=== PATIENT | male | born 1960 ===

== ENCOUNTER 2021-08-19 10:34 | Inpatient (IN) | payer OTHER, SELFPAY ==
[2021-08-19] VITALS (7 sets, daily range): BP systolic 91–163; BP diastolic 62–93; PULSE 90–98; RESP 14–20; TEMP 36.3–36.6; O2SAT 98–100; BMI 26.0
--- NOTE | ~2021-08-19 | XR_ITS ---
EXAMINATION: XR chest 2V Exam Date/Time: 08/19/2021 14:52 CDT CLINICAL HISTORY: weakness, swelling in bilateral legs Comparison: 06/08/2018. RESULT: Lines, tubes, and devices: None. Lungs and pleura: Clear. Cardiomediastinal silhouette: Stable cardiomediastinal silhouette. Other: No acute osseous or upper abdominal finding. IMPRESSION: No acute cardiopulmonary process Reviewed, dictated and finalized at location K.
--- NOTE | ~2021-08-19 | US_ITS ---
EXAMINATION: US venous doppler [facility] DATE: 08/19/2021 13:14 INDICATION: Lower limb swelling. TECHNIQUE: Grayscale ultrasound images without and with compression and Doppler ultrasound images of the bilateral lower extremity veins were obtained. COMPARISON: None. FINDINGS: The visualized portions of right common femoral vein, profunda (deep) femoral vein, femoral vein, pop liteal vein, posterior tibial veins, and greater saphenous vein outflow are patent. The visualized portions of left common femoral vein, profunda femoral vein, femoral vein, popliteal v ein, peroneal veins, posterior tibial veins, and greater saphenous vein outflow are patent. IMPRESSION: 1. No deep venous thrombosis. Reviewed, dictated and finalized at location B.
--- NOTE | ~2021-08-19 | XR_ITS ---
EXAMINATION: XR chest 1V portable EXAM DATE: 08/21/2021 06:00 INDICATION: CHF. TECHNIQUE: Portable AP frontal chest x-ray was obtained. Comparison is made to prior examination from 08/19/2021. FINDINGS: The lungs are clear. There are no pleural effusions. The cardiomediastinal silhouette is within normal limits. There is no pneumothorax suspected. The bones and soft tissues are unremarkab le. IMPRESSION: No acute cardiopulmonary findings. Reviewed, dictated and finalized at location A.
[2021-08-19 12:36] LABS: Basophils Absolute Auto 0.2 K/mm3 (0.0-0.1); Basophils Percent Auto 1.8 % (0.2-1.2); Eosinophils Absolute Auto 0.5 K/mm3 (0-0.3); Hematocrit 37.1 % (42.0-52.0); Hemoglobin 11.7 g/dL (14.0-18.0); Immature Granulocyte Absolute 0.07 K/mm3 (0.00-0.031); Immature Granulocyte Percent A 0.6 % (0-0.5); Lymphocytes Absolute Auto 1.95 K/mm3 (0.9-3.2); Lymphocytes Percent Auto 15.5 % (18.3-44.2); Mean Corpuscular HGB Conc 31.5 g/dl (32-36); Mean Corpuscular Hemoglobin 33.7 pg (26-34); Mean Corpuscular Volume 106.9 fl (80-100); Mean Platelet Volume 8.3 fl (7.4-10.4); Monocytes Absolute Auto 1.2 K/mm3 (0.1-0.6); Monocytes Percent Auto 9.9 % (2.6-8.5); Neutrophils Absolute Auto 8.6 K/mm3 (1.3-6.7); Neutrophils Percent Auto 68.2 % (45.5-73.1); Platelet Count Result 731 k/mm3 (150-375); Red Blood Count 3.47 M/mm3 (4.6-6.20); Red Cell Distribution Width 14.2 % (11.5-14.5); White Blood Count 12.6 K/mm3 (4.5-10.0)
[2021-08-19 12:43] LABS: Alanine Aminotransferase 15 U/L (4-50); Albumin Level 3.7 g/dL (3.5-5.1); Alkaline Phosphatase 126 U/L (38-126); Anion Gap 6 mmol/L (8-16); Aspartate Amino Transferase 30 U/L (17-59); Bilirubin,Total 0.5 mg/dL (0.2-1.3); Blood Urea Nitrogen 3 mg/dL (9-20); Calcium 8.5 mg/dL (8.4-10.2); Carbon Dioxide 34 mmol/L (22-30); Chloride 98 mmol/L (98-107); Estimated CRCL calculation 97 ml/min; Estimated Glomerular Filt Rate > 60; Glucose 100 mg/dL (65-110); Sodium 138 mmol/L (137-145)
[2021-08-19 12:47] LABS: Prothrombin Time 12.9 Seconds (11.1-14.7)
[2021-08-19 12:48] LABS: Partial Thromboplastin Time 30.5 SECONDS (22.3-36.8)
--- NOTE | 2021-08-19 12:55 | ED.GENADULT ---
HPI - General Adult General Chief complaint: Extremity Problem,Nontraumatic Stated complaint: leg swelling Time Seen by Provider: 08/19/21 12:04 History of Present Illness HPI narrative: Patient is a 60-year-old male who presents ER with bilateral lower extremity swelling. Ongoing over the last 5 days. Patient had recently been hospitalized at [facility]. At that time he had urinary retention as well as colitis. He had a cystoscopy performed with biopsy for possible neoplasm. He also had a colonoscopy. He was treated with Levaquin and metronidazole. He also was receiving oxybutynin for bladder spasm. He has been self cathing himself but is started to urinate on his own since starting Flomax. Denies any burning urination or blood in stool/urine at this time. No chest pain or chest pressure. No orthopnea. No new cough. No dyspnea. Related Data Home Medications Medication Instructions Recorded Confirmed aspirin 325 mg PO DAILY 08/19/21 levofloxacin 750 mg DAILY 08/19/21 metronidazole 500 mg PO Q12H 08/19/21 oxybutynin chloride 5 mg Q6H PRN 08/19/21 oxycodone See Rx Instructions .ROUTE 08/19/21 .COMPLEX PRN tamsulosin 0.4 mg PO DAILY 08/19/21 08/19/21 Allergies Allergy/AdvReac Type Severity Reaction Status Date / Time ibuprofen AdvReac Cramping Verified 08/19/21 11:48 of the Muscles Review of Systems Review of Systems: All systems reviewed & are unremarkable except as noted in HPI and below Constitutional: Constitutional: Denies chills, Denies fever(s) and Denies weakness Cardiovascular: Cardiovascular: Denies chest pain, Denies rapid heart rate and Denies radiating jaw, neck or arm pain Respiratory: Respiratory: Denies cough, Denies dyspnea and Denies wheezing Gastrointestinal: Gastrointestinal: Denies abdominal pain, Denies nausea and Denies vomiting Genitourinary: Genitourinary: Denies hematuria Comments: Intermittent self cath Musculoskeletal: Musculoskeletal: Denies arthralgias and Denies joint swelling Comments: Bilateral lower extremity edema FOR[facility], [facility] Past Medical History Medical History (Updated 08/19/21 @ 16:12 by Mendoza Pittman MD) Colitis Gastric ulcer Hypertension Upper GI bleed Surgical History Surgical History (Updated 08/19/21 @ 12:58 by Mendoza Pittman MD) History of colonoscopy History of esophagogastroduodenoscopy (EGD) Social History Social History (Updated 08/19/21 @ 12:58 by Mendoza Pittman MD) Smoking status: Current every day smoker Exam Narrative: GENERAL: Well-appearing, well-nourished, and in no acute distress. HEAD: Normocephalic, atraumatic. EYES: PERRL and EOMI. NECK: Supple. CHEST: Clear to auscultation. No respiratory distress. HEART: Regular rate and rhythm. Normal peripheral pulses. ABDOMEN: Soft, nontender, nondistended. EXTREMITIES: Normal range of motion. 3+ edema. SKIN: Warm, dry, no rash. NEURO: Alert and oriented x3. PSYCH: Normal mood and affect. Course Course Emergency Course: Patient with mild hypokalemia in addition to likely new heart failure. Admit for diuresis and potassium replacement. Additionally patient has signs of UTI and CBC and UA though he is without symptoms. Will start on ceftriaxone given that he has been doing self-catheterization. Vital Signs Vital signs: Vital Signs Temperature 97.9 F 08/19/21 10:45 Pulse Rate 98 08/19/21 10:45 Respiratory Rate 18 08/19/21 10:45 Blood Pressure 128/84 08/19/21 10:45 Pulse Oximetry 100 08/19/21 10:45 Temperature 97.9 F 08/19/21 10:45 Pulse Rate 98 08/19/21 10:45 Respiratory Rate 18 08/19/21 10:45 Blood Pressure 128/84 08/19/21 10:45 Pulse Oximetry 100 08/19/21 10:45 Medical Decision Making Vital Signs Vital Signs: Vital Signs Temperature 97.9 F 08/19/21 10:45 Pulse Rate 98 08/19/21 10:45 Respiratory Rate 18 08/19/21 10:45 Blood Pressure 128/84 08/19/21 10:45 Pulse Oximetry
[2021-08-19 14:25] LABS: Bilirubin Urine Negative (Negative); Blood Urine 1+ (Negative); Color Urine Yellow (Yellow); Glucose Urine UA Negative (Negative); Ketones Urine Negative (Negative); Leukocyte Esterase Ur 1+ LEU/UL (Negative); Nitrate Urine Negative (Negative); Protein Urine 2+ mg/dL (Negative); Urobilinogen Urine 0.2 mg/dL (<2.0); pH Urine 7.5 (5.0-9.0)
[2021-08-19 14:28] LABS: Add Urine Microscopic? YES; Appearance Urine Sl Cloudy (Clear)
[2021-08-19 14:32] LABS: Mucus Urine Rare /lpf; RBC Urine 21-50 /hpf (0-2); WBC Urine >75 /hpf
[2021-08-19 14:37] LABS: NT Pro B Type Natriuretic Pept 2000 pg/mL (5-100)
[2021-08-19] MEDS: POTASSIUM CHLORIDE 20 MEQ TABLET 40 MEQ PO (16:17)
[2021-08-19] MEDS: FUROSEMIDE INJ 40 MG/4 ML VIAL IV PUSH ×2 (16:17→20:33)
--- NOTE | 2021-08-19 17:00 | PM.IMHP ---
H&P: HPI History of Present Illness Date/Time: 08/19/21 17:00 Chief Complaint: Back and leg pain Narrative: Patient is 58-year-old male with past medical history of colitis, gastric ulcer, hypertension who presented to the ED with complaints of back and leg pain. According the patient the patient was at [facility] for bloody vomit, melena and underwent a EGD colonoscopy and cystoscopy according to him. Patient stated that they took couple polyps however the bleeding has stopped. Prior to discharge he knows that his legs were starting to swell. Patient was unable to urinate on his own so he was doing a straight cath and was started on Flomax. Since being discharged patient has been straight cathing himself. However he stated that he has had a flare in his back the last 2-3 days and he can been down, stand, sleep or even able to make himself something the eat. He stated that he has tried to take Tylenol for the pain however that did not seem to relieve it he wants something stronger. When I would ask about his legs his legs are very hot to the touch, swollen, red, painful. He stated that he does have 3 dogs however the scratches that are on his legs are from him because it itches and he scratched himself. He did almost jump off the stretcher when I did touch his legs. His legs do have 2 to 3+ pitting edema bilaterally. Patient is pretty poor historian as he does not want to entertain that things that need to be known and would not really give me a good review of systems however he denies having chest pain, shortness of breath, nausea, vomiting, diarrhea, constipation. He did state that he was weak and fatigued but really was concentrating on his back pain and needing something for that. Review of Systems Review of Systems: All systems reviewed & are unremarkable except as noted in HPI and below PMFSH Past Medical History Medical History Colitis Gastric ulcer Hypertension Upper GI bleed Surgical History Surgical History History of colonoscopy History of esophagogastroduodenoscopy (EGD) Family History Family History (Updated 08/19/21 @ 18:49 by KRISTYN Abarca) Mother Cerebrovascular accident Father Heart disease Hypertension Cancer Social History Social History Social History: Patient rents a room from his friend and states that his daughter Vivian will be his surrogate. Patient wishes to be a full code at this time. Patient does live with a man who has 3 dogs. Patient did state that he has quit smoking 6 weeks ago along with drinking. Smoking packs per day: 0.5 Smoking cigarettes per day: 10.0 Years smoked: 37 Smoking pack-years: 18.50 Smoking status: Current every day smoker Tobacco type: cigarettes Second hand tobacco smoke exposure: Yes Additional smoking assessment comments: Stated he quit smoking 6 weeks ago Alcohol intake: current Drinks per week: 42 Alcohol use details: 6 pack of beer a day since he was 23 years old stated that he quit drinking about 6 weeks ago Substance use: current Substance use type: marijuana Other substance usage details: 3-4 times per week Last use: 08/17/21 Living arrangements: with friend(s) Occupation/Education: 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
[2021-08-19] MEDS: HYDROcodone/acetaminophen (*CRX) 5-325 MG TABLET 1 TAB PO ×2 (19:05→22:53)
[2021-08-19 20:03] LABS: Alanine Aminotransferase 13 U/L (4-50); Albumin Level 3.7 g/dL (3.5-5.1); Alkaline Phosphatase 125 U/L (38-126); Anion Gap 5 mmol/L (8-16); Aspartate Amino Transferase 27 U/L (17-59); Bilirubin,Total 0.5 mg/dL (0.2-1.3); Blood Urea Nitrogen 4 mg/dL (9-20); Calcium 8.4 mg/dL (8.4-10.2); Carbon Dioxide 30 mmol/L (22-30); Chloride 100 mmol/L (98-107); Estimated CRCL calculation 116 ml/min; Estimated Glomerular Filt Rate > 60; Glucose 114 mg/dL (65-110); Magnesium 2.1 mg/dL (1.6-2.3); Potassium 3.2 mmol/L (3.4-5.0); Sodium 135 mmol/L (137-145)
[2021-08-19] MEDS: DOXYCYCLINE HYCLATE 100 MG TABLET PO (20:32)
--- NOTE | 2021-08-19 22:56 | ADMGEN ---
This patient, Johny Vega, was admitted to [facility] Surg Room 326-01. Patient/family oriented to hospital policies and general routines including ID bracelet, bed and alarms, visiting hours, pain management, procedures, bathroom and other care routines, personal items, smoking policy, room service/diet, and visiting hours. Information on how to activate the Rapid Response Team has been discussed. Patient/Family are encouraged to report perceived risks to care and to ask questions if they do not understand what they are told or what they should do.
[2021-08-20] VITALS (8 sets, daily range): BP systolic 92–112; BP diastolic 53–82; PULSE 79–93; RESP 14–18; TEMP 36.4–36.9; O2SAT 95–98
[2021-08-20] MEDS: HYDROcodone/acetaminophen (*CRX) 5-325 MG TABLET 1 TAB PO ×3 (05:01→18:39)
--- NOTE | 2021-08-20 06:00 | ECHO_ITS ---
Patient Info Name: Johny Vega Age: 60 years : 1960 Gender: Male Ht: 71 in Wt: 186 lbs BSA: 2.07 m2 HR: 83 bpm BP: 112 / 82 mmHg Heart Rhythm: Sinus Rhythm Technical Quality: Fair Exam Date: 08/20/2021 9:52 AM Exam Location: [facility] Pulmonary Patient Status: Outpatient Admit Date: 08/19/2021 Staff Ordering Physician: Mendoza Pittman MD Human Resources Trainee: Aline Hollis RDCS Attending Provider: Brent Tee MD Referring Physician: Zain WONG; Exam Type: CA echo doppler color flow Study Info Indications - heart failure Complete two-dimensional, color flow and Doppler transthoracic echocardiogram is performed. Summary 1. Complete two-dimensional, color flow and Doppler transthoracic echocardiogram is performed. 2. Normal LV size and wall thickness, normal LV systolic function, ejection fraction 60-65%, grade 1 diastolic dysfunction. Normal mitral valve structure, no significant MR. Mild aortic valve sclerosis, no hemodynamically significant stenosis. Mild pulmonary hypertension, RVSP 39 mmHg. Trivial TR. Sinus rhythm. Left Ventricle Left ventricular chamber dimension is normal. Left ventricular systolic function is normal, estimated at 60-65%. There is no increased left ventricular wall thickness. The left ventricular diastolic function is grade I diastolic dysfunction. Left Atria Left atrial chamber dimension is normal. Right Atria Right atrial chamber dimension is normal. Aortic Valve There is mild aortic valve sclerosis. There is no aortic valve stenosis. Pulmonic Valve The pulmonic valve is not well visualized. Mitral Valve The mitral valve has normal leaflets. There is no mitral valve regurgitation. Tricuspid Valve The tricuspid valve leaflets are normal. There is trace tricuspid valve regurgitation. Mild pulmonary hypertension, estimated pulmonary arterial systolic pressure is 39 mmHg. Inferior Vena Cava Normal inferior vena cava with >50% collapse upon inspiration consistent with normal right atrial pressure, 10 mmHg. Left Ventricular Outflow Tract Name Value Normal LVOT 2D LVOT Diameter 2.0 cm LVOT Doppler LVOT Peak Gradient 9 mmHg LVOT Mean Gradient 3 mmHg LVOT VTI 22 cm LVOT VTI/AV VTI Ratio 0.8 LVOT Stroke Volume 70 ml LVOT CO 6.0 l/min LVOT CI 2.9 l/min/m2 Pulmonic Valve Name Value Normal RVOT Doppler RVOT Peak Gradient 2 mmHg PV Doppler PV Peak Gradient 8 mmHg Mitral Valve Name
[2021-08-20 06:08] LABS: Basophils Absolute Auto 0.1 K/mm3 (0.0-0.1); Basophils Percent Auto 1.3 % (0.2-1.2); Eosinophils Absolute Auto 0.7 K/mm3 (0-0.3); Eosinophils Percent Auto 7.1 % (0-4.4); Hematocrit 29.6 % (42.0-52.0); Hemoglobin 9.4 g/dL (14.0-18.0); Immature Granulocyte Absolute 0.04 K/mm3 (0.00-0.031); Immature Granulocyte Percent A 0.4 % (0-0.5); Lymphocytes Absolute Auto 1.62 K/mm3 (0.9-3.2); Lymphocytes Percent Auto 15.9 % (18.3-44.2); Mean Corpuscular HGB Conc 31.8 g/dl (32-36); Mean Corpuscular Hemoglobin 33.8 pg (26-34); Mean Corpuscular Volume 106.5 fl (80-100); Mean Platelet Volume 8.2 fl (7.4-10.4); Monocytes Absolute Auto 1.1 K/mm3 (0.1-0.6); Monocytes Percent Auto 10.5 % (2.6-8.5); Neutrophils Absolute Auto 6.6 K/mm3 (1.3-6.7); Neutrophils Percent Auto 64.8 % (45.5-73.1); Platelet Count Result 548 k/mm3 (150-375); Red Blood Count 2.78 M/mm3 (4.6-6.20); Red Cell Distribution Width 13.9 % (11.5-14.5); White Blood Count 10.2 K/mm3 (4.5-10.0)
--- NOTE | 2021-08-20 08:15 | P.PNIM_ITS ---
Progress Note: A&P Assessment and Plan (1) CHF exacerbation: Code(s): I50.9 - Heart failure, unspecified Status: Acute Assessment and Plan: * BNP elevated 1999 * Chest x-ray shows no acute cardiopulmonary process * Repeat chest xray in the am * Echo: 60-65% EF with a grade 1 diastolic dysfunction * Probably diastolic heart failure * Trend urine output * Daily weights * 4+ pitting edema bilateral lower extremities * Aspirin (2) Cellulitis: Code(s): L03.90 - Cellulitis, unspecified Status: Acute Assessment and Plan: * Bilateral lower extremities hot to the touch, red, swollen * Patient reports pain * add doxycycline for now in conjunction with ceftriaxone * Trend symptoms * WBC elevated at 12.6 * Trend labs * Doppler shows no DVT (3) Abnormal urinalysis: Code(s): R82.90 - Unspecified abnormal findings in urine Status: Acute Assessment and Plan: * UA shows 1+ leukocyte esterase, >75 WBC * Continue ceftriaxone * Trend urine output * WBC slightly elevated * Urine culture pending * Trend labs * Labs in the am * Tailor antibiotics to culture result * probably secondary to self cath (4) BPH (benign prostatic hyperplasia): Code(s): N40.0 - Benign prostatic hyperplasia without lower urinary tract symptoms Status: Acute Assessment and Plan: * Started on tamsulosin * Urinary catheter * Trend urine output (5) Chest pain: Code(s): R07.9 - Chest pain, unspecified Status: Acute Assessment and Plan: * Reports chest pain * Intermittent * Check a trop Subjective Date/time seen: 08/20/21 08:15 Interval history: Date/Time: 08/19/21 17:00 Narrative: Patient is 58-year-old male with past medical history of colitis, gastric ulcer, hypertension who presented to the ED with complaints of back and leg pain. According the patient the patient was at [facility] [place] for bloody vomit, melena and underwent a EGD colonoscopy and cystoscopy according to him. Patient stated that they took couple polyps however the bleeding has stopped. Prior to discharge he knows that his legs were starting to swell. Patient was unable to urinate on his own so he was doing a straight cath and was started on Flomax. Since being discharged patient has been straight cathing himself. However he stated that he has had a flare in his back the last 2-3 days and he can been down, stand, sleep or even able to make himself something the eat. He stated that he has tried to take Tylenol for the pain however that did not seem to relieve it he wants something stronger. When I would ask about his legs his legs are very hot to the touch, swollen, red, painful. He stated that he does have 3 dogs however the scratches that are on his legs are from him because it itches and he scratched himself. He did almost jump off the stretcher when I did touch his legs. His legs do have 2 to 3+ pitting edema bilaterally. Patient is pretty poor historian as he does not want to entertain that things that need to be known and would not really give me a good review of systems however he denies having chest pain, shortness of breath, nausea, vomiting, diarrhea, constipation. He did state that he was weak and fatigued but really was concentrating on his back pain and needing something for that. Date/Time 08/20/21 0215 Patient was eating his breakfast. He stated that he is still having pain in his back and legs. He did state that the left leg has mor
--- NOTE | 2021-08-20 08:15 | PM.IMPN ---
Progress Note: A&P Assessment and Plan (1) CHF exacerbation: Code(s): I50.9 - Heart failure, unspecified Status: Acute Assessment and Plan: BNP elevated 1999 Chest x-ray shows no acute cardiopulmonary process Repeat chest xray in the am Echo: 60-65% EF with a grade 1 diastolic dysfunction Probably diastolic heart failure Trend urine output Daily weights 4+ pitting edema bilateral lower extremities Aspirin (2) Cellulitis: Code(s): L03.90 - Cellulitis, unspecified Status: Acute Assessment and Plan: Bilateral lower extremities hot to the touch, red, swollen Patient reports pain add doxycycline for now in conjunction with ceftriaxone Trend symptoms WBC elevated at 12.6 Trend labs Doppler shows no DVT (3) Abnormal urinalysis: Code(s): R82.90 - Unspecified abnormal findings in urine Status: Acute Assessment and Plan: UA shows 1+ leukocyte esterase, >75 WBC Continue ceftriaxone Trend urine output WBC slightly elevated Urine culture pending Trend labs Labs in the am Tailor antibiotics to culture result probably secondary to self cath (4) BPH (benign prostatic hyperplasia): Code(s): N40.0 - Benign prostatic hyperplasia without lower urinary tract symptoms Status: Acute Assessment and Plan: Started on tamsulosin Urinary catheter Trend urine output (5) Chest pain: Code(s): R07.9 - Chest pain, unspecified Status: Acute Assessment and Plan: Reports chest pain Intermittent Check a trop Subjective Date/time seen: 08/20/21 08:15 Interval history: Date/Time: 08/19/21 17:00 Narrative: Patient is 58-year-old male with past medical history of colitis, gastric ulcer, hypertension who presented to the ED with complaints of back and leg pain. According the patient the patient was at [facility] for bloody vomit, melena and underwent a EGD colonoscopy and cystoscopy according to him. Patient stated that they took couple polyps however the bleeding has stopped. Prior to discharge he knows that his legs were starting to swell. Patient was unable to urinate on his own so he was doing a straight cath and was started on Flomax. Since being discharged patient has been straight cathing himself. However he stated that he has had a flare in his back the last 2-3 days and he can been down, stand, sleep or even able to make himself something the eat. He stated that he has tried to take Tylenol for the pain however that did not seem to relieve it he wants something stronger. When I would ask about his legs his legs are very hot to the touch, swollen, red, painful. He stated that he does have 3 dogs however the scratches that are on his legs are from him because it itches and he scratched himself. He did almost jump off the stretcher when I did touch his legs. His legs do have 2 to 3+ pitting edema bilaterally. Patient is pretty poor historian as he does not want to entertain that things that need to be known and would not really give me a good review of systems however he denies having chest pain, shortness of breath, nausea, vomiting, diarrhea, constipation. He did state that he was weak and fatigued but really was concentrating on his back pain and needing something for that. Date/Time 08/20/21 3912 Patient was eating his breakfast. He stated that he is still having pain in his back and legs. He did state that the left leg has more pain than the right. He also stated that he feels pain in the right thigh, and denies any trauma or knot felt with palpation. He also stated that he gets a sharp pain in the left chest 2-3rd midclavicular line. He stated that pain stays and goes away very quickly and is not on consistent. He denies any shortness of breath, nausea, vomiting, diarrhea, sweats, fevers, and chills. Review of Systems Review of Systems: All systems revi
[2021-08-20] MEDS: ENOXAPARIN 40 MG/0.4 ML SYRINGE SUB-Q (08:48)
[2021-08-20] MEDS: FOLIC ACID 1 MG TABLET PO (08:48)
[2021-08-20] MEDS: FUROSEMIDE INJ 40 MG/4 ML VIAL IV PUSH ×2 (08:48→20:14)
[2021-08-20] MEDS: ASPIRIN 81 MG ENTERIC TABLET PO (08:48)
[2021-08-20] MEDS: TAMSULOSIN HCL 0.4 MG CAPSULE PO (08:48)
[2021-08-20] MEDS: THIAMINE HCL 100 MG TABLET PO (08:48)
[2021-08-20] MEDS: DOXYCYCLINE HYCLATE 100 MG TABLET PO ×2 (08:48→20:14)
[2021-08-20] MEDS: POTASSIUM CHLORIDE 20 MEQ TABLET.ER PO (08:48)
[2021-08-20 12:51] LABS: Troponin I < 0.012 ng/mL (0.000-0.034)
[2021-08-21] MEDS: HYDROcodone/acetaminophen (*CRX) 5-325 MG TABLET 1 TAB PO ×3 (01:59→12:24)
[2021-08-21 05:15] VITALS: BP 104/68; PULSE 79; RESP 14; TEMP 36.8; O2SAT 97
[2021-08-21 05:37] LABS: Basophils Absolute Auto 0.1 K/mm3 (0.0-0.1); Basophils Percent Auto 1.1 % (0.2-1.2); Eosinophils Absolute Auto 0.9 K/mm3 (0-0.3); Eosinophils Percent Auto 8.4 % (0-4.4); Hematocrit 30.9 % (42.0-52.0); Hemoglobin 9.9 g/dL (14.0-18.0); Immature Granulocyte Absolute 0.04 K/mm3 (0.00-0.031); Immature Granulocyte Percent A 0.4 % (0-0.5); Lymphocytes Absolute Auto 2.02 K/mm3 (0.9-3.2); Lymphocytes Percent Auto 20.1 % (18.3-44.2); Mean Corpuscular Hemoglobin 33.9 pg (26-34); Mean Corpuscular Volume 105.8 fl (80-100); Mean Platelet Volume 8.2 fl (7.4-10.4); Monocytes Absolute Auto 0.9 K/mm3 (0.1-0.6); Monocytes Percent Auto 8.6 % (2.6-8.5); Neutrophils Absolute Auto 6.2 K/mm3 (1.3-6.7); Neutrophils Percent Auto 61.4 % (45.5-73.1); Platelet Count Result 542 k/mm3 (150-375); Red Blood Count 2.92 M/mm3 (4.6-6.20); Red Cell Distribution Width 13.7 % (11.5-14.5); White Blood Count 10.1 K/mm3 (4.5-10.0)
[2021-08-21 05:48] LABS: Alanine Aminotransferase 9 U/L (4-50); Alkaline Phosphatase 101 U/L (38-126); Anion Gap 2 mmol/L (8-16); Aspartate Amino Transferase 21 U/L (17-59); Bilirubin,Total 0.3 mg/dL (0.2-1.3); Blood Urea Nitrogen 5 mg/dL (9-20); Carbon Dioxide 32 mmol/L (22-30); Chloride 101 mmol/L (98-107); Estimated CRCL calculation 100 ml/min; Estimated Glomerular Filt Rate > 60; Glucose 102 mg/dL (65-110); Magnesium 1.9 mg/dL (1.6-2.3); Potassium 3.5 mmol/L (3.4-5.0); Sodium 135 mmol/L (137-145)
[2021-08-21] MEDS: ENOXAPARIN 40 MG/0.4 ML SYRINGE SUB-Q (08:16)
[2021-08-21] MEDS: POTASSIUM CHLORIDE 20 MEQ TABLET.ER PO (08:17)
[2021-08-21] MEDS: TAMSULOSIN HCL 0.4 MG CAPSULE PO (08:17)
[2021-08-21] MEDS: THIAMINE HCL 100 MG TABLET PO (08:17)
[2021-08-21] MEDS: DOXYCYCLINE HYCLATE 100 MG TABLET PO ×2 (08:17→20:59)
[2021-08-21] MEDS: ASPIRIN 81 MG ENTERIC TABLET PO (08:17)
[2021-08-21] MEDS: FUROSEMIDE INJ 40 MG/4 ML VIAL IV PUSH (08:17)
[2021-08-21] MEDS: FOLIC ACID 1 MG TABLET PO (08:17)
[2021-08-21 08:36] VITALS: O2SAT 96
[2021-08-21] MEDS: AMPICILLIN TRIHYDRATE 500 MG CAPSULE PO ×3 (11:20→23:51)
--- NOTE | 2021-08-21 12:00 | PM.IMPN ---
Progress Note: A&P Assessment and Plan (1) UTI (urinary tract infection): Code(s): N39.0 - Urinary tract infection, site not specified Status: Acute Assessment and Plan: UA shows 1+ leukocyte esterase, >75 WBC Ampicillin susceptible at this time Trend urine output WBC slightly elevated, trending down Urine culture grew enterococcus Trend labs Labs in the am Tailor antibiotics to culture result probably secondary to self cath (2) CHF exacerbation: Code(s): I50.9 - Heart failure, unspecified Status: Acute Assessment and Plan: BNP elevated 1999 Chest x-ray shows no acute cardiopulmonary process Repeat chest xray No acute cardiopulmonary findings. Echo: 60-65% EF with a grade 1 diastolic dysfunction Probably diastolic heart failure Change to PO Lasix at this point Trend urine output Daily weights 1+ pitting edema bilateral lower extremities Aspirin (3) Cellulitis: Code(s): L03.90 - Cellulitis, unspecified Status: Acute Assessment and Plan: Bilateral lower extremities hot to the touch, red, swollen Patient reports pain keep the doxycycline for now Trend symptoms WBC elevated at 12.6, trending down and is currently 10.1 Trend labs Doppler shows no DVT (4) BPH (benign prostatic hyperplasia): Code(s): N40.0 - Benign prostatic hyperplasia without lower urinary tract symptoms Status: Acute Assessment and Plan: Started on tamsulosin Urinary catheter, will DC as he will need to be re-educated about sterility Could also being having some urgency and frequency from the UTI Trend urine output (5) Chest pain: Code(s): R07.9 - Chest pain, unspecified Status: Acute Assessment and Plan: Reports chest pain Intermittent Check a trop, came back negative Chest xray shows no acute cardiopulmonary process Time Spent With Patient Time with patient: Greater than 35 minutes Subjective Date/time seen: 08/21/21 1200 Interval history: Date/Time: 08/19/21 17:00 Narrative: Patient is 58-year-old male with past medical history of colitis, gastric ulcer, hypertension who presented to the ED with complaints of back and leg pain. According the patient the patient was at [facility] for bloody vomit, melena and underwent a EGD colonoscopy and cystoscopy according to him. Patient stated that they took couple polyps however the bleeding has stopped. Prior to discharge he knows that his legs were starting to swell. Patient was unable to urinate on his own so he was doing a straight cath and was started on Flomax. Since being discharged patient has been straight cathing himself. However he stated that he has had a flare in his back the last 2-3 days and he can been down, stand, sleep or even able to make himself something the eat. He stated that he has tried to take Tylenol for the pain however that did not seem to relieve it he wants something stronger. When I would ask about his legs his legs are very hot to the touch, swollen, red, painful. He stated that he does have 3 dogs however the scratches that are on his legs are from him because it itches and he scratched himself. He did almost jump off the stretcher when I did touch his legs. His legs do have 2 to 3+ pitting edema bilaterally. Patient is pretty poor historian as he does not want to entertain that things that need to be known and would not really give me a good review of systems however he denies having chest pain, shortness of breath, nausea, vomiting, diarrhea, constipation. He did state that he was weak and fatigued but really was concentrating on his back pain and needing something for that. Date/Time 08/20/21 1115 Patient was eating his breakfast. He stated that he is still having pain in his back and legs. He did state that the left leg has more pain than the right. He also stated that he feels lilly
--- NOTE | 2021-08-21 12:00 | P.PNIM_ITS ---
Progress Note: A&P Assessment and Plan (1) UTI (urinary tract infection): Code(s): N39.0 - Urinary tract infection, site not specified Status: Acute Assessment and Plan: * UA shows 1+ leukocyte esterase, >75 WBC * Ampicillin susceptible at this time * Trend urine output * WBC slightly elevated, trending down * Urine culture grew enterococcus * Trend labs * Labs in the am * Tailor antibiotics to culture result * probably secondary to self cath (2) CHF exacerbation: Code(s): I50.9 - Heart failure, unspecified Status: Acute Assessment and Plan: * BNP elevated 1999 * Chest x-ray shows no acute cardiopulmonary process * Repeat chest xray No acute cardiopulmonary findings. * Echo: 60-65% EF with a grade 1 diastolic dysfunction * Probably diastolic heart failure * Change to PO Lasix at this point * Trend urine output * Daily weights * 1+ pitting edema bilateral lower extremities * Aspirin (3) Cellulitis: Code(s): L03.90 - Cellulitis, unspecified Status: Acute Assessment and Plan: * Bilateral lower extremities hot to the touch, red, swollen * Patient reports pain * keep the doxycycline for now * Trend symptoms * WBC elevated at 12.6, trending down and is currently 10.1 * Trend labs * Doppler shows no DVT (4) BPH (benign prostatic hyperplasia): Code(s): N40.0 - Benign prostatic hyperplasia without lower urinary tract symptoms Status: Acute Assessment and Plan: * Started on tamsulosin * Urinary catheter, will DC as he will need to be re-educated about sterility * Could also being having some urgency and frequency from the UTI * Trend urine output (5) Chest pain: Code(s): R07.9 - Chest pain, unspecified Status: Acute Assessment and Plan: * Reports chest pain * Intermittent * Check a trop, came back negative * Chest xray shows no acute cardiopulmonary process Time Spent With Patient Time with patient: Greater than 35 minutes Subjective Date/time seen: 08/21/21 1200 Interval history: Date/Time: 08/19/21 17:00 Narrative: Patient is 58-year-old male with past medical history of colitis, gastric ulcer, hypertension who presented to the ED with complaints of back and leg pain. According the patient the patient was at [facility] for bloody vomit, melena and underwent a EGD colonoscopy and cystoscopy according to him. Patient stated that they took couple polyps however the bleeding has stopped. Prior to discharge he knows that his legs were starting to swell. Patient was unable to urinate on his own so he was doing a straight cath and was started on Flomax. Since being discharged patient has been straight cathing himself. However he stated that he has had a flare in his back the last 2-3 days and he can been down, stand, sleep or even able to make himself something the eat. He stated that he has tried to take Tylenol for the pain however that did not seem to relieve it he wants something stronger. When I would ask about his legs his legs are very hot to the touch, swollen, red, painful. He stated that he does have 3 dogs however the scratches that are on his legs are from him because it itches and he scratched himself. He did almost jump off the stretcher when I did touch his legs. His legs do have 2 to 3+ pitting edema bilaterally. Patient is pretty poor historian as he does not want to entertain that things that need to be known and would not really give me a good review of
[2021-08-21 14:00] VITALS: BP 125/56; PULSE 70; RESP 18; TEMP 36.8; O2SAT 99
[2021-08-21] MEDS: MELATONIN 5 MG TABLET PO (20:59)
[2021-08-21 21:34] VITALS: BP 113/73; PULSE 88; RESP 18; TEMP 37.2; O2SAT 95
[2021-08-22 05:46] LABS: Basophils Absolute Auto 0.1 K/mm3 (0.0-0.1); Basophils Percent Auto 1.3 % (0.2-1.2); Eosinophils Absolute Auto 1.1 K/mm3 (0-0.3); Hematocrit 31.8 % (42.0-52.0); Hemoglobin 10.3 g/dL (14.0-18.0); Immature Granulocyte Absolute 0.05 K/mm3 (0.00-0.031); Immature Granulocyte Percent A 0.6 % (0-0.5); Lymphocytes Absolute Auto 2.05 K/mm3 (0.9-3.2); Mean Corpuscular HGB Conc 32.4 g/dl (32-36); Mean Corpuscular Hemoglobin 34.3 pg (26-34); Mean Platelet Volume 8.5 fl (7.4-10.4); Monocytes Absolute Auto 0.9 K/mm3 (0.1-0.6); Monocytes Percent Auto 9.5 % (2.6-8.5); Neutrophils Absolute Auto 4.8 K/mm3 (1.3-6.7); Neutrophils Percent Auto 53.6 % (45.5-73.1); Platelet Count Result 555 k/mm3 (150-375); Red Cell Distribution Width 13.6 % (11.5-14.5); White Blood Count 8.9 K/mm3 (4.5-10.0)
[2021-08-22 05:49] VITALS: BP 115/75; PULSE 85; RESP 18; TEMP 37; O2SAT 95
[2021-08-22 06:04] LABS: Alanine Aminotransferase 8 U/L (4-50); Albumin Level 3.1 g/dL (3.5-5.1); Alkaline Phosphatase 94 U/L (38-126); Anion Gap 6 mmol/L (8-16); Aspartate Amino Transferase 20 U/L (17-59); Bilirubin,Total 0.3 mg/dL (0.2-1.3); Blood Urea Nitrogen 5 mg/dL (9-20); Carbon Dioxide 24 mmol/L (22-30); Chloride 104 mmol/L (98-107); Estimated CRCL calculation 100 ml/min; Estimated Glomerular Filt Rate > 60; Glucose 104 mg/dL (65-110); Magnesium 2.2 mg/dL (1.6-2.3); Potassium 3.9 mmol/L (3.4-5.0); Sodium 134 mmol/L (137-145)
[2021-08-22] MEDS: AMPICILLIN TRIHYDRATE 500 MG CAPSULE PO (06:18)
[2021-08-22] MEDS: POTASSIUM CHLORIDE 20 MEQ TABLET.ER PO (08:00)
[2021-08-22] MEDS: TAMSULOSIN HCL 0.4 MG CAPSULE PO (08:00)
[2021-08-22] MEDS: DOXYCYCLINE HYCLATE 100 MG TABLET PO (08:00)
[2021-08-22] MEDS: FUROSEMIDE 20 MG TABLET PO (08:00)
[2021-08-22] MEDS: FOLIC ACID 1 MG TABLET PO (08:00)
[2021-08-22] MEDS: ASPIRIN 81 MG ENTERIC TABLET PO (08:00)
[2021-08-22] MEDS: THIAMINE HCL 100 MG TABLET PO (08:00)
[2021-08-22] MEDS: ENOXAPARIN 40 MG/0.4 ML SYRINGE SUB-Q (08:01)
--- NOTE | 2021-08-22 09:30 | P.DS_ITS ---
DS: Admitting Diagnosis Discharge Date 08/22/21929 Admitting Diagnosis UTI/BLE cellulitis DS: Discharge Diagnosis Discharge Diagnosis (1) UTI (urinary tract infection): Code(s): N39.0 - Urinary tract infection, site not specified Status: Acute Assessment and Plan: * UA shows 1+ leukocyte esterase, >75 WBC * Ampicillin susceptible at this time, will need to complete a 10 day course * Trend urine output * WBC slightly elevated, trending down * Urine culture grew enterococcus * Trend labs * Labs in the am * Tailor antibiotics to culture result * probably secondary to self cath (2) CHF exacerbation: Code(s): I50.9 - Heart failure, unspecified Status: Acute Assessment and Plan: * BNP elevated 1999 * Chest x-ray shows no acute cardiopulmonary process * Repeat chest xray No acute cardiopulmonary findings. * Echo: 60-65% EF with a grade 1 diastolic dysfunction * Probably diastolic heart failure * Change to PO Lasix at this point * Trend urine output * Daily weights * 1+ pitting edema bilateral lower extremities * Aspirin (3) Cellulitis: Code(s): L03.90 - Cellulitis, unspecified Status: Acute Assessment and Plan: * Bilateral lower extremities hot to the touch, red, swollen * Patient reports pain * keep the doxycycline for now * Trend symptoms * WBC elevated at 12.6, trending down and is currently 10.1 * Trend labs * Doppler shows no DVT (4) BPH (benign prostatic hyperplasia): Code(s): N40.0 - Benign prostatic hyperplasia without lower urinary tract symptoms Status: Acute Assessment and Plan: * Started on tamsulosin * Urinary catheter, will DC as he will need to be re-educated about sterility * Could also being having some urgency and frequency from the UTI * Trend urine output (5) Chest pain: Code(s): R07.9 - Chest pain, unspecified Status: Acute Assessment and Plan: * Reports chest pain * Intermittent * Check a trop, came back negative * Chest xray shows no acute cardiopulmonary process DS: Summary Hospital Course Hospital Course: Patient a 60-year-old male with a past medical history of colitis also hypertension who presents ED with complaints of back leg pain. Arrival to the patient was noted to 4+ pitting edema bilateral lower extremities. Patient was IV Lasix 40 mg b.i.d. 2 days. Echo did show EF of 60 65% with grade 1 diastolic dysfunction. Patient was changed to p.o. Lasix has been tolerating it fine. Urinary catheter was inserted since the patient does straight cath p.r.n.. Urinary problems current and patient is euvolemic at this time. Patient was also noted to have warmth with redness and swelling to the bilateral lower extremities. White blood cell count was elevated upon arrival patient was started on doxycycline UA did look infectious and patient was started on IV ceftriaxone however urine culture grew Enterococcus and patient was switched to ampicillin. Patient states that he feels good today and is ready to go. He stated that he thinks his legs look better, and the pain in mild and tolerable. Patient denies any chest pain, shortness over, nausea, vomiting, diarrhea constipation, weakness or fatigue. Labs and vital signs are stable at this time. Status at Discharge Functional status at discharge: independent ambulation Overall status at discharge: patient is progressing back to baseline Time Spent with Patient Time attestation: Total time spent p
--- NOTE | 2021-08-22 09:30 | PM.DS ---
DS: Admitting Diagnosis Discharge Date 08/22/21929 Admitting Diagnosis UTI/BLE cellulitis DS: Discharge Diagnosis Discharge Diagnosis (1) UTI (urinary tract infection): Code(s): N39.0 - Urinary tract infection, site not specified Status: Acute Assessment and Plan: UA shows 1+ leukocyte esterase, >75 WBC Ampicillin susceptible at this time, will need to complete a 10 day course Trend urine output WBC slightly elevated, trending down Urine culture grew enterococcus Trend labs Labs in the am Tailor antibiotics to culture result probably secondary to self cath (2) CHF exacerbation: Code(s): I50.9 - Heart failure, unspecified Status: Acute Assessment and Plan: BNP elevated 1999 Chest x-ray shows no acute cardiopulmonary process Repeat chest xray No acute cardiopulmonary findings. Echo: 60-65% EF with a grade 1 diastolic dysfunction Probably diastolic heart failure Change to PO Lasix at this point Trend urine output Daily weights 1+ pitting edema bilateral lower extremities Aspirin (3) Cellulitis: Code(s): L03.90 - Cellulitis, unspecified Status: Acute Assessment and Plan: Bilateral lower extremities hot to the touch, red, swollen Patient reports pain keep the doxycycline for now Trend symptoms WBC elevated at 12.6, trending down and is currently 10.1 Trend labs Doppler shows no DVT (4) BPH (benign prostatic hyperplasia): Code(s): N40.0 - Benign prostatic hyperplasia without lower urinary tract symptoms Status: Acute Assessment and Plan: Started on tamsulosin Urinary catheter, will DC as he will need to be re-educated about sterility Could also being having some urgency and frequency from the UTI Trend urine output (5) Chest pain: Code(s): R07.9 - Chest pain, unspecified Status: Acute Assessment and Plan: Reports chest pain Intermittent Check a trop, came back negative Chest xray shows no acute cardiopulmonary process DS: Summary Hospital Course Hospital Course: Patient a 60-year-old male with a past medical history of colitis also hypertension who presents ED with complaints of back leg pain. Arrival to the patient was noted to 4+ pitting edema bilateral lower extremities. Patient was IV Lasix 40 mg b.i.d. 2 days. Echo did show EF of 60 65% with grade 1 diastolic dysfunction. Patient was changed to p.o. Lasix has been tolerating it fine. Urinary catheter was inserted since the patient does straight cath p.r.n.. Urinary problems current and patient is euvolemic at this time. Patient was also noted to have warmth with redness and swelling to the bilateral lower extremities. White blood cell count was elevated upon arrival patient was started on doxycycline UA did look infectious and patient was started on IV ceftriaxone however urine culture grew Enterococcus and patient was switched to ampicillin. Patient states that he feels good today and is ready to go. He stated that he thinks his legs look better, and the pain in mild and tolerable. Patient denies any chest pain, shortness over, nausea, vomiting, diarrhea constipation, weakness or fatigue. Labs and vital signs are stable at this time. Status at Discharge Functional status at discharge: independent ambulation Overall status at discharge: patient is progressing back to baseline Time Spent with Patient Time attestation: Total time spent providing and/or coordinating discharge services: 43 minutes Time spent: Greater than 30 minutes Specific discharge activities: Diagnostic testing, chart review, developing a treatment plan, education, care coordination documentation, physical exam, result review Exam Const: General: cooperative, no acute distress, well developed, alert, awake, ill appearing chronically and tired appearing Nutritional Appearance: average body habitus and well nourished
== END 2021-08-22 11:50 | disposition home or self-care (01) | DRG 383 ==
LOC: ANHED 16:12 → ANH3MEDSUR 16:41
PROVIDERS: Admitting Provider Family Medicine; Emergency Provider Emergency Medicine; Visit Provider Nurse Practitioner
DX: L03.116 Cellulitis of left lower limb (principal); L03.115 Cellulitis of right lower limb; N40.0 Benign prostatic hyperplasia without lower urinary tract symptoms; F17.210 Nicotine dependence, cigarettes, uncomplicated; Z82.49 Family history of ischemic heart disease and other diseases of the circulatory system; Z82.3 Family history of stroke; N39.0 Urinary tract infection, site not specified; T83.518A Infection and inflammatory reaction due to other urinary catheter, initial encounter; Y84.6 Urinary catheterization as the cause of abnormal reaction of the patient, or of later complication, without mention of misadventure at the time of the procedure; I50.31 Acute diastolic (congestive) heart failure; I11.0 Hypertensive heart disease with heart failure; R07.9 Chest pain, unspecified; Z79.811 Long term (current) use of aromatase inhibitors; Z79.899 Other long term (current) drug therapy; B95.2 Enterococcus as the cause of diseases classified elsewhere
CPT/HCPCS: 36415; 71045; 71046; 80053; 81001; 83735; 83880; 84484; 85025; 85610; 85730; 87077; 87086; 87088; 87186; 93306; 93970; 96365; 96372; 96375; 97110; 97161; 97165; 97530; 99285; A9270; G0378; G0379; J0696; J1650; J1940

== ENCOUNTER 2023-09-18 09:49 | Observation (INO) | payer OTHER, SELFPAY ==
[2023-09-18] VITALS (26 sets, daily range): BP systolic 104–127; BP diastolic 46–81; PULSE 78–94; RESP 12–25; TEMP 36.3–36.9; O2SAT 97–100; BMI 25.4
--- NOTE | ~2023-09-18 | CT_ITS ---
CT Scan of the Chest without Contrast: Clinical Indication: Pulmonary abnormality partially imaged on abdominal pelvic CT Technique: Contiguous sections were acquired throughout the chest without intravenous contrast. Dose reduction technique was used on this scan by utilizing automated exposure control and iterative recon struction technique. The dose-length product (DLP) was 233.95 mGy-cm. Findings: There is no evidence of any significant mediastinal, hilar or axillary lymphadenopathy. Coronary julian ry calcifications are present. There is no evidence of pleural or pericardial effusion. There is a vague groundglass opacity in the left upper lobe (axial images 70-77). There is probable f ocal scarring anteriorly in the right upper lobe (axial image 62 for example). No other pulmonary abn ormality seen. Images through the upper abdomen reveal no abnormalities. Impression: Vague groundglass opacity left upper lobe, nonspecific. Diagnostic considerations could include focal pneumonitis or possibly chronic postinflammatory change. Additional probable focal peripheral scarring in the anterior left upper lobe. Reviewed, dictated and finalized at location M. Impression: Vague groundglass opacity left upper lobe, nonspecific. Diagnostic consideratio ns could include focal pneumonitis or possibly chronic postinflammatory change. Additional probable focal peripheral scarring in the anterior left upper lobe.
--- NOTE | ~2023-09-18 | CT_ITS ---
CT of the Abdomen and Pelvis: Indication: Lower GI bleeding Technique: 2.5 mm axial scans were obtained through the abdomen and pelvis following intravenous adm inistration of 100 cc of Omnipaque 350. Dose reduction technique was used on this scan by utilizing a utomated exposure control and iterative reconstruction technique. The dose-length product (DLP) was 5 08.84 mGy-cm. Findings: Scans through the lung bases densely partially imaged probable groundglass opacity in the left upper lobe. The liver, spleen, pancreas, gallbladder, adrenals and kidneys are within normal limits. There are at herosclerotic calcifications of the aorta. No lymphadenopathy. No bowel obstruction or bowel wall thickening. There is no evidence to suggest acute appendicitis. Images through the pelvis were performed. Diffuse urinary bladder wall thickening present. No pelvic mass seen. No ascites. Bilateral L5 pars interarticularis defects are noted. Impression: Suspected cystitis. Correlate with urinalysis. Probable partially groundglass opacity left upper lobe. Pneumonia is a consideration. Consider dedica whit chest CT as indicated. Reviewed, dictated and finalized at [facility]. Impression: Suspected cystitis. Correlate with urinalysis. Probable partially groundglass opacity left upper lobe. Pneumonia is a consider ation. Consider dedicated chest CT as indicated.
--- NOTE | 2023-09-18 10:14 | ED.GIBLEED ---
HPI - GI Bleed General Chief complaint: GI Bleed Stated complaint: N/V/D - black stools Time Seen by Provider: 09/18/23 09:54 History of Present Illness HPI Narrative: Patient presenting here with several days of dark stools, nausea vomiting and epigastric pain, he does have a history of peptic ulcer disease that he states had to be fixed endoscopically. No blood in vomit. Related Data Home Medications Medication Instructions Recorded Confirmed tamsulosin 0.4 mg capsule 0.4 mg PO DAILY 08/19/21 08/19/21 Allergies Allergy/AdvReac Type Severity Reaction Status Date / Time ibuprofen AdvReac Cramping Verified 08/19/21 11:48 of the Muscles Review of Systems Review of Systems: All systems reviewed & are unremarkable except as noted in HPI and below PMFSH Past Medical History Medical History Colitis Gastric ulcer Hypertension Upper GI bleed Surgical History Surgical History History of colonoscopy History of esophagogastroduodenoscopy (EGD) Family History Family History (Updated 08/19/21 @ 18:49 by KRISTYN Carbajal) Mother Cerebrovascular accident Father Heart disease Hypertension Cancer Social History Social History Social History: Patient rents a room from his friend and states that his daughter Vivian will be his surrogate. Patient wishes to be a full code at this time. Patient does live with a man who has 3 dogs. Patient did state that he has quit smoking 6 weeks ago along with drinking. Smoking packs per day: 0.5 Smoking cigarettes per day: 10.0 Years smoked: 37 Smoking pack-years: 18.50 Smoking status: Current every day smoker Tobacco type: cigarettes Second hand tobacco smoke exposure: Yes Additional smoking assessment comments: Stated he quit smoking 6 weeks ago Alcohol intake: current Drinks per week: 42 Alcohol use details: 6 pack of beer a day since he was 23 years old stated that he quit drinking about 6 weeks ago Substance use: current Substance use type: marijuana Other substance usage details: 3-4 times per week Last use: 08/17/21 Living arrangements: with friend(s) Occupation/Education: retired 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 EYES: EOMI, conjunctiva normal ENT: Hearing grossly intact LUNGS: Nonlabored breathing. HEART: [Regular rate and rhythm] ABD: [Soft], slightly distended and slightly tender to palpation diffusely RECTAL: Dark stool, no tenderness, hemoccult+ EXT: Normal range of motion SKIN: [No rashes or lesions.] NEURO: [Alert and oriented x 3. No gross focal sensory or strength deficits.] PSYCH: Normal affect Course Vital Signs Vital signs: Vital Signs Temperature 98.0 F 09/18/23 09:53 Pulse Rate 89 09/18/23 09:53 Respiratory Rate 20 09/18/23 09:53 Blood Pressure 127/81 09/18/23 09:53 Pulse Oximetry 100 09/18/23 09:53 Oxygen Delivery Room Air 09/18/23 09:53 Temperature 98.0 F 09/18/23 09:53 Pulse Rate 86 09/18/23 13:19 Respiratory Rate 20 09/18/23 13:19 Blood Pressure 118/64 09/18/23 13:03 Pulse Oximetry 100 09/18/23 13:19 Oxygen Delivery Room Air 09/18/23 09:53 MDM - GI Bleed MDM Narrative Medical decision making narrative: Electronic medical record was reviewed. Patient presented to the ED with complaint of [lower GI bleed, vomiting, abdominal discomfort]. Vitals [were wit
[2023-09-18 10:41] LABS: Basophils Absolute Auto 0.1 K/mm3 (0.0-0.1); Basophils Percent Auto 0.9 % (0.2-1.2); Eosinophils Absolute Auto 0.1 K/mm3 (0-0.3); Eosinophils Percent Auto 1.3 % (0-4.4); Hematocrit 30.6 % (42.0-52.0); Hemoglobin 10.6 g/dL (14.0-18.0); Immature Granulocyte Absolute 0.04 K/mm3 (0.00-0.031); Immature Granulocyte Percent A 0.4 % (0-0.5); Lymphocytes Absolute Auto 2.01 K/mm3 (0.9-3.2); Lymphocytes Percent Auto 21.4 % (18.3-44.2); Mean Corpuscular HGB Conc 34.6 g/dl (32-36); Mean Platelet Volume 8.6 fl (7.4-10.4); Monocytes Percent Auto 10.7 % (2.6-8.5); Neutrophils Absolute Auto 6.2 K/mm3 (1.3-6.7); Neutrophils Percent Auto 65.3 % (45.5-73.1); Platelet Count Result 250 k/mm3 (150-375); Red Blood Count 3.03 M/mm3 (4.6-6.20); Red Cell Distribution Width 13.2 % (11.5-14.5); White Blood Count 9.4 K/mm3 (4.5-10.0)
[2023-09-18 10:54] LABS: INR 0.9; Lactic Acid Reflex 1.4 mmol/L (0.7-2.0); Prothrombin Time 12.8 Seconds (11.1-14.7)
[2023-09-18 10:55] LABS: Alanine Aminotransferase 27 U/L (6-50); Albumin Level 3.9 g/dL (3.5-5.1); Alkaline Phosphatase 94 U/L (38-126); Anion Gap 6 mmol/L (4-12); Aspartate Amino Transferase 30 U/L (17-59); Bilirubin,Total 0.5 mg/dL (0.2-1.3); Blood Urea Nitrogen 21 mg/dL (9-20); Calcium 9.1 mg/dL (8.4-10.2); Carbon Dioxide 32 mmol/L (22-30); Chloride 97 mmol/L (98-107); Estimated CRCL calculation 64 ml/min; Estimated Glomerular Filt Rate > 60; Glucose 112 mg/dL (65-110); Lipase 88 U/L (23-300); Magnesium 1.8 mg/dL (1.6-2.3); Potassium 3.1 mmol/L (3.4-5.0); Sodium 135 mmol/L (137-145)
[2023-09-18] MEDS: ONDANSETRON INJ 4 MG/2 ML VIAL IV PUSH (11:42)
[2023-09-18] MEDS: PANTOPRAZOLE SODIUM IV 40 MG VIAL 80 MG IV PUSH (11:44)
[2023-09-18] MEDS: MORPHINE SULFATE (*CRX) 2 MG/ML INJ IV PUSH (11:50)
[2023-09-18] MEDS: POTASSIUM CHLORIDE 20 MEQ ER TABLET 40 MEQ PO (13:00)
--- NOTE | 2023-09-18 13:06 | PM.IMHP ---
H&P: HPI History of Present Illness Date/Time: 09/18/23 22:00 Chief Complaint: SOB, GI Bleed Narrative: 62 y/o M presents here with shortness of breath and dark tarry stools with PMH of BPH, colitis, gastric ulcer, HTN, and upper GI bleed (2007, 2021). Patient presents here from home via EMS for further evaluation of shortness of breath and dark tarry stools. Shortness of breath and dizziness has been ongoing since 3:00 a.m. Patient reports approximately 12 episodes of diarrhea today that has been dark and tarry. Change in color and consistency has been ongoing for the past 3-4 days. Accompanied by dizziness and abdominal pain. Patient describes the abdominal pain as upper, cannot describe it, nonradiating, intermittent, aggravated by pressure, and alleviated by passing BMs/belching. Patient has history of PUD with upper GI bleed, most recent in 2021. Patient's last upper endoscopy was on 2021 and last colonoscopy was on 2021. Patient unsure what scopes showed, cannot remember. Reports light tobacco use once every week to two weeks, alcohol estimated at 4 beers minimum per day and will occasionally have hard alcohol, and no recreational drug use beyond marijuana. No previous issues with alcohol withdrawal. Denies shortness of breath, cough, fever, chills, or body aches. Initial VS at presentation: 98? F, HR 89, R 20, 127/81, and 100% on RA. ED workup showed: no leukocytosis, hemoglobin 10.6 (previously 10.3 on 08/22/21), potassium 3.1, creatinine 1.1 and GFR >60. CT of the abdomen pelvis showed suspected cystitis and probable partial ground-glass opacity in the left upper lobe. Review of Systems Review of Systems: All systems reviewed & are unremarkable except as noted in HPI and below PMFSH Past Medical History Medical History Acute on chronic blood loss anemia Arthritis BPH (benign prostatic hyperplasia) Colitis Gastric ulcer Hypertension Melena NSAID long-term use Upper GI bleed Surgical History Surgical History History of colonoscopy History of esophagogastroduodenoscopy (EGD) Family History Family History Mother Cerebrovascular accident Father Heart disease Hypertension Cancer Social History Social History Social History: Patient rents a room from his friend and states that his daughter Vivian will be his surrogate. Patient wishes to be a full code at this time. Patient does live with a man who has 3 dogs. Patient did state that he has quit smoking 6 weeks ago along with drinking. Smoking packs per day: 0.5 Smoking cigarettes per day: 10.0 Years smoked: 20 Smoking pack-years: 10.00 Smoking status: Current every day smoker Tobacco type: cigarettes Second hand tobacco smoke exposure: Yes Additional smoking assessment comments: Stated he quit smoking 6 weeks ago Alcohol intake: current Drinks per week: 40 Alcohol use details: 6 pack of beer a day since he was 23 years old stated that he quit drinking about 6 weeks ago Substance use: current Substance use type: marijuana Other substance usage details: 1-2 hits daily Last use: 09/17/23 Do You Feel Safe in your Home?: Yes Lack of Transportation: YES Lack of Food: Sometimes True Current Housing: I Have Housing Concerned About Future Housing: No Difficulty Paying Gas/Electric Bills: No Difficulty Paying for Meds: No Currently Unemployed: No Education: Decline to Answer Difficulty w/ Childcare or Family Care: No Living arrangements: with friend(s) Occupation/Education: 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
[2023-09-18] MEDS: LACTATED RINGERS 1,000 ML 150 ML IV CONT (13:47)
--- NOTE | 2023-09-18 14:27 | WPDANESEPPF ---
Anes - Initial Pre Proc Eval Procedure: Operation Date: 09/18/23 16:00 Proposed Procedures p Esophagogastroduodenoscopy - Kalen Cody MD Date/Time: 09/18/23 14:27 Surgeon: Roberto Alegre MD Pre Op Diagnosis: LGIB Patient Data Age: 62 Gender: M Height: 1.8 m Weight: 79.8 kg Last Vital Signs Temp 97.9 F 09/18/23 13:45 Pulse 87 09/18/23 13:45 Resp 22 H 09/18/23 13:45 BP 115/69 09/18/23 13:45 Pulse Ox 99 09/18/23 13:45 O2 Del Method Room Air 09/18/23 13:45 Allergies Allergy/AdvReac Type Severity Reaction Status Date / Time ibuprofen AdvReac Cramping Verified 09/18/23 13:39 of the Muscles Home Medications Medication Instructions Recorded Confirmed Type tamsulosin 0.4 mg capsule 0.4 mg PO DAILY 08/19/21 08/19/21 History ampicillin 500 mg capsule 500 mg PO Q6HR 9 days #36 caps 08/22/21 Rx aspirin 81 mg tablet,delayed 81 mg PO QAM #30 tabs 08/22/21 Rx release doxycycline hyclate 100 mg tablet 100 mg PO Q12HR 7 days #14 tabs 08/22/21 Rx furosemide 20 mg tablet 20 mg PO DAILY #30 tabs 08/22/21 Rx hydrocodone 5 mg-acetaminophen 325 1 tablet PO Q4H PRN Pain Rated 4-6 08/22/21 Rx mg tablet #10 tabs Laboratory Tests 09/18/23 10:27 WBC 9.4 K/mm3 (4.5-10.0) RBC 3.03 L M/mm3 (4.6-6.20) Hgb 10.6 L g/dL (14.0-18.0) Hct 30.6 L % (42.0-52.0) MCV 101.0 H fl (80-100) MCH 35.0 H pg (26-34) MCHC 34.6 g/dl (32-36) RDW 13.2 % (11.5-14.5) Plt Count 250 D k/mm3 (150-375) MPV 8.6 fl (7.4-10.4) Immature Gran % (Auto) 0.4 % (0-0.5) Neut % (Auto) 65.3 % (45.5-73.1) Lymph % (Auto) 21.4 % (18.3-44.2) Victoria % (Auto) 10.7 H % (2.6-8.5) Eos % (Auto) 1.3 % (0-4.4) Baso % (Auto) 0.9 % (0.2-1.2) Lymph # (Auto) 2.01 K/mm3 (0.9-3.2) Victoria # (Auto) 1.0 H K/mm3 (0.1-0.6) Eos # (Auto) 0.1 K/mm3 (0-0.3) Baso # (Auto) 0.1 K/mm3 (0.0-0.1) Abs Immat Gran (auto) 0.04 H K/mm3 (0.00-0.031) Absolute Neuts (auto) 6.2 K/mm3 (1.3-6.7) Absolute Nucleated RBC 0.000 K/mm3 (0.0-0.012) Nucleated RBC % 0.0 % (0.0-0.2) PT 12.8 Seconds (11.1-14.7) INR 0.9 APTT 24.0 Seconds (22.3-36.8) Sodium 135 L mmol/L (137-145) Potassium 3.1 L mmol/L (3.4-5.0) Chloride 97 L mmol/L (98-107) Carbon Dioxide 32 H mmol/L (22-30) Anion Gap 6 mmol/L (4-12) BUN 21 H D mg/dL (9-20) Creatinine 1.10 mg/dL (0.7-1.3) Estim Creat Clear Calc 64 ml/min Estimated GFR > 60 (59 - ) Glucose 112 H mg/dL (65-110) Lactic Acid 1.4 mmol/L (0.7-2.0) Calcium 9.1 mg/dL (8.4-10.2) Magnesium 1.8 mg/dL (1.6-2.3) Total Bilirubin 0.5 mg/dL (0.2-1.3) AST 30 U/L (17-59) ALT 27 U/L (6-50) Alkaline Phosphatase 94 U/L (38-126) Total Protein 7.0 g/dL (6.3-8.2) Albumin 3.9 g/dL (3.5-5.1) Lipase 88 U/L (23-300) Patient hx anesthesia problems: none Family hx anesthesia problems: none Results Review: All pre-operative results and documents have been reviewed as part of the pre-operative evaluation. [facility] Past Medical History Medical History (Updated 09/18/23 @ 13:53 by Milla Mace APRN) BPH (benign prostatic hyperplasia) Colitis Gastric ulcer Hypertension Upper GI bleed Surgical History Surgical History History of colonoscopy History of esophagogastroduodenoscopy (EGD) Family History Family History (Updated 08/19/21 @ 18:49 by KRISTYN Carbajal) Mother Cerebrovascular accident Father Heart disease Hypertension Cancer Social History Social History Social History: Patient rents a room from his friend and states that his daughter Vivian will be his surrogate. Patient wishes to be a full code at this time. Patient do
--- NOTE | 2023-09-18 14:28 | WPDGICN ---
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 He had bleeding ulcer in 2007 that required hospitalization and 4 untis of blood transfusion. He says that had egd and colonscopy about 2 years ago as routine. He is not taking blood thinners other than aspirin, no ppi. He is here with 3 days of dark tarry stool, also abdominal discomfort. He had difficulty getting up because lightheadedness and blurry vision, also had nausea and vomiting with epigastric pain. hgb 10.6, bun 21, creat 1.1. He is admitted to hospital, started on iv protonix. CT scan a/p reviewed, no gi findings, Suspected cystitis. Probable partially groundglass opacity left upper lobe. Review of Systems Constitutional: Constitutional: Reports chills and Reports weakness Eyes: Eyes: Reports blurry vision ENT: Reports Normal hearing present Cardiovascular: Cardiovascular: Reports lightheadedness Respiratory: Respiratory: Reports dyspnea on exertion Gastrointestinal: Gastrointestinal: Reports melena Genitourinary: Genitourinary: Denies hematuria Musculoskeletal: Musculoskeletal: Reports arthralgias (chronic, using excedrin in daily basis) Integumentary/Breasts: Skin/Breast: Denies rash Neurologic: Denies confusion Psychiatric: Psychiatric: Denies behavioral changes [facility] Past Medical History Medical History (Updated 09/18/23 @ 14:51 by Kalen Cody MD) Acute on chronic blood loss anemia Arthritis BPH (benign prostatic hyperplasia) Colitis Gastric ulcer Hypertension Melena NSAID long-term use Upper GI bleed Surgical History Surgical History History of colonoscopy History of esophagogastroduodenoscopy (EGD) Family History Family History (Updated 08/19/21 @ 18:49 by KRISTYN Carbajal) Mother Cerebrovascular accident Father Heart disease Hypertension Cancer Social History Social History Social History: Patient rents a room from his friend and states that his daughter Vivian will be his surrogate. Patient wishes to be a full code at this time. Patient does live with a man who has 3 dogs. Patient did state that he has quit smoking 6 weeks ago along with drinking. Smoking packs per day: 0.5 Smoking cigarettes per day: 10.0 Years smoked: 37 Smoking pack-years: 18.50 Smoking status: Current every day smoker Tobacco type: cigarettes Second hand tobacco smoke exposure: Yes Additional smoking assessment comments: Stated he quit smoking 6 weeks ago Alcohol intake: current Drinks per week: 42 Alcohol use details: 6 pack of beer a day since he was 23 years old stated that he quit drinking about 6 weeks ago Substance use: current Substance use type: marijuana Other substance usage details: 3-4 times per week Last use: 08/17/21 Living arrangements: with friend(s) [facility]
--- NOTE | 2023-09-18 15:32 | ADMGEN ---
This patient, Johny Vega, was admitted to 3 [facility] Surg Room 319-01. Patient/family oriented to hospital policies and general routines including ID bracelet, bed and alarms, visiting hours, pain management, procedures, bathroom and other care routines, personal items, smoking policy, room service/diet, and visiting hours. Information on how to activate the Rapid Response Team has been discussed. Patient/Family are encouraged to report perceived risks to care and to ask questions if they do not understand what they are told or what they should do. Pt from ED to GI lab to 319
[2023-09-18 16:53] LABS: Anion Gap 4 mmol/L (4-12); Blood Urea Nitrogen 18 mg/dL (9-20); Calcium 8.9 mg/dL (8.4-10.2); Carbon Dioxide 32 mmol/L (22-30); Chloride 98 mmol/L (98-107); Estimated CRCL calculation 64 ml/min; Estimated Glomerular Filt Rate > 60; Glucose 95 mg/dL (65-110); Potassium 3.2 mmol/L (3.4-5.0); Sodium 134 mmol/L (137-145)
[2023-09-18] MEDS: POTASSIUM CHLORIDE INJ 40 MEQ in SODIUM CHLORIDE 0.9% IV 500 ML 130 MEQ IVPB (18:03)
[2023-09-18] MEDS: SUCRALFATE SUSP 100 MG/ML 10 ML UDC 1000 MG PO ×2 (18:03→21:51)
[2023-09-18 21:24] LABS: Hematocrit 28.6 % (42.0-52.0); Hemoglobin 9.7 g/dL (14.0-18.0)
[2023-09-18 21:34] LABS: Anion Gap 5 mmol/L (4-12); Blood Urea Nitrogen 16 mg/dL (9-20); Calcium 8.8 mg/dL (8.4-10.2); Carbon Dioxide 29 mmol/L (22-30); Chloride 101 mmol/L (98-107); Estimated CRCL calculation 64 ml/min; Estimated Glomerular Filt Rate > 60; Glucose 113 mg/dL (65-110); Potassium 3.5 mmol/L (3.4-5.0); Sodium 135 mmol/L (137-145)
[2023-09-18 21:49] LABS: Appearance Urine Clear (Clear); Bilirubin Urine Negative (Negative); Blood Urine Negative (Negative); Color Urine Yellow (Yellow); Glucose Urine UA Negative (Negative); Ketones Urine Negative (Negative); Leukocyte Esterase Ur Negative LEU/UL (Negative); Nitrate Urine Negative (Negative); Protein Urine Negative (Negative)
[2023-09-18] MEDS: PANTOPRAZOLE SODIUM IV 40 MG VIAL IV PUSH (21:51)
[2023-09-18 22:13] LABS: Add Urine Microscopic? NO; Specific Grav Ur 1.066 (1.001-1.035)
[2023-09-18] MEDS: POTASSIUM CHLORIDE 20 MEQ PACKET (FOR LIQUID) 40 MEQ PO (23:03)
[2023-09-18] MEDS: MELATONIN 3 MG TABLET PO (23:03)
[2023-09-19] MEDS: ROSUVASTATIN 20 MG TABLET PO ×2 (00:36→20:15)
[2023-09-19] MEDS: traMADol HCL (*CRX) 50 MG TABLET PO (01:21)
[2023-09-19 01:54] LABS: Toxigenic C. Diff NEGATIVE (NEGATIVE)
[2023-09-19 03:37] LABS: Basophils Absolute Auto 0.1 K/mm3 (0.0-0.1); Basophils Percent Auto 1.3 % (0.2-1.2); Eosinophils Absolute Auto 0.2 K/mm3 (0-0.3); Eosinophils Percent Auto 3.1 % (0-4.4); Hematocrit 25.8 % (42.0-52.0); Hemoglobin 8.6 g/dL (14.0-18.0); Immature Granulocyte Absolute 0.02 K/mm3 (0.00-0.031); Immature Granulocyte Percent A 0.3 % (0-0.5); Lymphocytes Absolute Auto 1.81 K/mm3 (0.9-3.2); Lymphocytes Percent Auto 23.3 % (18.3-44.2); Mean Corpuscular HGB Conc 33.3 g/dl (32-36); Mean Corpuscular Hemoglobin 35.1 pg (26-34); Mean Corpuscular Volume 105.3 fl (80-100); Mean Platelet Volume 8.6 fl (7.4-10.4); Monocytes Absolute Auto 0.9 K/mm3 (0.1-0.6); Monocytes Percent Auto 10.9 % (2.6-8.5); Neutrophils Absolute Auto 4.8 K/mm3 (1.3-6.7); Neutrophils Percent Auto 61.1 % (45.5-73.1); Platelet Count Result 197 k/mm3 (150-375); Red Blood Count 2.45 M/mm3 (4.6-6.20); Red Cell Distribution Width 13.3 % (11.5-14.5); White Blood Count 7.8 K/mm3 (4.5-10.0)
[2023-09-19 03:49] LABS: Alanine Aminotransferase 21 U/L (6-50); Albumin Level 3.2 g/dL (3.5-5.1); Alkaline Phosphatase 75 U/L (38-126); Anion Gap 0 mmol/L (4-12); Aspartate Amino Transferase 28 U/L (17-59); Bilirubin,Total 0.5 mg/dL (0.2-1.3); Blood Urea Nitrogen 14 mg/dL (9-20); Calcium 8.6 mg/dL (8.4-10.2); Carbon Dioxide 28 mmol/L (22-30); Chloride 103 mmol/L (98-107); Estimated CRCL calculation 64 ml/min; Estimated Glomerular Filt Rate > 60; Glucose 103 mg/dL (65-110); Magnesium 1.7 mg/dL (1.6-2.3); Potassium 3.9 mmol/L (3.4-5.0); Sodium 131 mmol/L (137-145)
[2023-09-19 05:52] VITALS: BP 104/47; PULSE 72; RESP 16; TEMP 36.2; O2SAT 97
[2023-09-19] MEDS: SUCRALFATE SUSP 100 MG/ML 10 ML UDC 1000 MG PO ×4 (06:19→20:15)
--- NOTE | 2023-09-19 07:57 | PM.IMPN ---
Progress Note: A&P Assessment and Plan (1) Melena: Code(s): K92.1 - Melena Status: Acute Assessment and Plan: Melena due to GI bleed secondary to improper use of NSAIDs. Patient continues to have melena with each BM, however he states he is having fewer diarrheal episodes today. He denies dizziness, lightheadedness and shortness of breath. - Hgb 8.6 on am labs, previously 10.6 on admission - hemeoccult+ - CT abd/pelvis: Suspected cystitis. Correlate with urinalysis. Probable partially groundglass opacity left upper lobe. Pneumonia is a consideration. Consider dedicated chest CT as indicated. - chest CT and UA added CT chest: Vague ground glass opacity left upper lobe, nonspecific. Diagnostic considerations could include focal pneumonitis or possibly chronic postinflammatory change. Additional probable focal peripheral scarring in the anterior left upper lobe. UA: specific gravity 1.066, otherwise unremarkable - GI consulted ED spoke with GI, EGD obtained on 09/17. No signs of active bleeding. See report. Recommendations include: cessation of daily excedrin/nsaids, protonix BID, carafate, EGD in 3 months to assess healing - pantoprazole loading dose, 80 IVP -> 40 IVP BID - carafate 1g daily - hold home aspirin - Discussed the importance of NSAID cessation - trend cbc (2) Acute posthemorrhagic anemia: Code(s): D62 - Acute posthemorrhagic anemia Status: Acute Assessment and Plan: Symptomatic anemia with patient complaining of dizziness/ lightheadedness and blurred vision on admission. Hemoglobin 10.6 on admission -> 9.7 -> 8.6 on am labs. Anemia due to GI bleed secondary to improper use of NSAIDs. - Monitor labs (3) Diarrhea: Code(s): R19.7 - Diarrhea, unspecified Status: Acute Assessment and Plan: Diarrheal symptoms improving. - no imaging findings to explain diarrhea - C diff negative - stool culture pending - trend lytes - monitor I&Os (4) Hypokalemia: Code(s): E87.6 - Hypokalemia Status: Acute Assessment and Plan: likely secondary to diarrhea. - K 3.1 -> 3.2 -> 3.5 -> 3.9 - KCl 40 PO given x2 and 40 IVPB on 09/17 - trend lytes Resolved (5) BPH (benign prostatic hyperplasia): Code(s): N40.0 - Benign prostatic hyperplasia without lower urinary tract symptoms Status: Acute Assessment and Plan: - possible cystitis seen on imaging - UA: specific gravity 1.066, otherwise unremarkable - straight caths QID at home, continue (6) Hypertension: Code(s): I10 - Essential (primary) hypertension Status: Acute Assessment and Plan: - chronic, currently 104/47 - no home medications - monitor Plan Diet: regular GI Prophylaxis: pantoprazole IVP BID DVT Prophylaxis: SCDs Lines: peripheral Code Status: full code Time Spent With Patient Time with patient: 25 - 35 minutes Subjective Date/time seen: 09/19/23 07:57 Interval history: 62 y/o male with past medical history of BPH, colitis, gastric ulcer, HTN, and upper GI bleed (2007, 2021) presents to the hospital with shortness of breath and dark tarry stools. Patient is pleasant lying comfortably in bed. He states he is feeling much better and denies shortness of breath, lightheadedness and dizziness at this time. Discussed with patient the findings of the EGD with the ulcers being the source of the bleed. He states understanding. Reiterated that the patient needs to stop his overuse of Excedrin/nsaids. He states understanding and will follow up with his PCP for pain management of his chronic arthritis. He remains on Protonix and is tolerating his diet well. He states that he continues to have dark diarrhea, but this is slowly improving. He denies chest pain, shortness of breath, palpitations, nausea/vomiting. Review of Systems Review of Systems: All systems reviewed & are unremarkable except as noted in HPI and below Exam Narrative: A
[2023-09-19] MEDS: PANTOPRAZOLE SODIUM IV 40 MG VIAL IV PUSH ×2 (09:11→20:15)
[2023-09-19 12:30] VITALS: O2SAT 96
[2023-09-19 13:44] VITALS: BP 100/56; PULSE 82; RESP 16; TEMP 36.4; O2SAT 97
--- NOTE | 2023-09-19 13:55 | WPDGIPROGNO ---
Progress Note: A&P Assessment and Plan (1) Peptic ulcer disease: Code(s): K27.9 - Peptic ulcer, site unspecified, unspecified as acute or chronic, without hemorrhage or perforation Status: Acute Assessment and Plan: multiple ulcers found yesterday- this is cause of recent bleeding he needs to stop using asa/nsaid's continue with protonix bid tolerating diet egd in 3 months to assess healing (2) Acute on chronic blood loss anemia: Code(s): D62 - Acute posthemorrhagic anemia Status: Acute Assessment and Plan: no more active bleeding yesterday monitor ppi daily (3) NSAID long-term use: Code(s): Z79.1 - prison (current) use of non-steroidal anti-inflammatories (NSAID) Status: Acute (4) Melena: Code(s): K92.1 - Melena Status: Acute (5) Arthritis: Code(s): M19.90 - Unspecified osteoarthritis, unspecified site Status: Acute Assessment and Plan: he is having daily joint pain, he will ask his pcp for other kind of pain meds- he understand that can take asa/nsaid's Subjective Date/time seen: 09/19/23 13:55 Interval history: egd yesterday with multiple ulcers in esophagus/stomach/duodenum- probably related to daily use of excedrin last BM still dark but less frequent, he is feeling better and tolerating diet hoping to go home tomorrow Review of Systems Review of Systems: All systems reviewed & are unremarkable except as noted in HPI and below Exam Const: General: comfortable and no acute distress HENMT: Face/Nose/Sinus: Normal nares present Eyes: General: appearance normal, both eyes and all related structures Neck: Neck: supple Resp: Auscultation: clear to auscultation bilaterally Cardio: Rate: regular rate Rhythm: regular rhythm GI: Inspection: non-distended GI Palp: Yes Soft to palpation, Yes Tenderness to palpation present (GI) (minimal ttp in epigastric) and No Guarding due to palpation present (GI) Auscultation: normal bowel sounds Skin: General skin exam: no rashes or lesions noted Neuro: Speech: normal speech Motor exam (neuro): 5/5 motor strength present throughout Extrem: General: normal to inspection Psych: Mental Status: mental status grossly normal Objective Data Vital Signs Vital Signs: Vital Signs - 24 hr 09/18/23 14:42 09/18/23 14:52 09/18/23 15:02 Temperature Pulse Rate 78 78 79 Respiratory Rate 23 H 20 18 Blood Pressure 105/59 L 106/66 105/46 L Pulse Oximetry 100 100 98 Oxygen Delivery Room Air Room Air Room Air 09/18/23 15:25 09/18/23 21:54 09/18/23 20:00 Temperature 97.3 F L 98.4 F Pulse Rate 86 80 Respiratory Rate 20 14 Blood Pressure 124/76 114/69 Pulse Oximetry 99 97 Oxygen Delivery Room Air 09/19/23 05:52 09/19/23 08:00 09/19/23 12:30 Temperature 97.1 F L Pulse Rate 72 Respiratory Rate 16 Blood Pressure 104/47 L Pulse Oximetry 97 96 Oxygen Delivery Room Air Room Air 09/19/23 13:44 Temperature 97.6 F Pulse Rate 82 Respiratory Rate 16 Blood Pressure 100/56 L Pulse Oximetry 97 Oxygen Delivery Intake/Output Intake/Output: Intake & Output 09/16/23 09/17/23 09/18/23 09/19/23 23:59 23:59 23:59 23:59 Intake Total 725 480 Output Total 301 Balance 725 179 Meds/Results Medications: Active Medications Generic Name Dose Route Start Last Admin Trade Name Tanner PRN Reason Stop Dose Admin Acetaminophen 650 mg 09/19/23 01:10 Acetaminophen 325 Mg Tablet PO Q4H PRN fever or pain rated 1-3 Melatonin 3 mg 09/18/23 22:15 09/18/23 23:03 Melatonin 3 Mg Tablet PO 3 mg HS MIGUEL Administration Pantoprazole Sodium 40 mg 09/18/23 21:00 09/19/23 09:11 Pantoprazole Sodium Iv 40 Mg Vial IV PUSH 40 mg Q12HR MIGUEL Administration Rosuvastatin Calcium 20 mg 09/19/23 00:05 09/19/23 00:36 Rosuvastatin 20 Mg Tablet PO 20 mg HS MIGUEL Administration Sucralfate 1,000 mg 09/18/23 16:30 09/19/23 13:07
[2023-09-19] MEDS: MELATONIN 3 MG TABLET PO (20:15)
[2023-09-19 21:19] VITALS: BP 150/88; PULSE 78; TEMP 36.6; O2SAT 99
[2023-09-20 05:27] VITALS: BP 108/67; PULSE 79; TEMP 36.8; O2SAT 96
[2023-09-20] MEDS: SUCRALFATE SUSP 100 MG/ML 10 ML UDC 1000 MG PO ×2 (06:36→10:54)
[2023-09-20] MEDS: traMADol HCL (*CRX) 50 MG TABLET PO ×2 (06:39→12:54)
[2023-09-20] MEDS: PANTOPRAZOLE SODIUM IV 40 MG VIAL IV PUSH (08:15)
[2023-09-20 08:17] LABS: Basophils Absolute Auto 0.1 K/mm3 (0.0-0.1); Basophils Percent Auto 0.8 % (0.2-1.2); Eosinophils Absolute Auto 0.4 K/mm3 (0-0.3); Eosinophils Percent Auto 4.2 % (0-4.4); Hematocrit 28.3 % (42.0-52.0); Hemoglobin 9.5 g/dL (14.0-18.0); Immature Granulocyte Absolute 0.05 K/mm3 (0.00-0.031); Immature Granulocyte Percent A 0.6 % (0-0.5); Lymphocytes Absolute Auto 1.74 K/mm3 (0.9-3.2); Lymphocytes Percent Auto 20.4 % (18.3-44.2); Mean Corpuscular HGB Conc 33.6 g/dl (32-36); Mean Corpuscular Hemoglobin 35.7 pg (26-34); Mean Corpuscular Volume 106.4 fl (80-100); Mean Platelet Volume 8.7 fl (7.4-10.4); Monocytes Absolute Auto 0.7 K/mm3 (0.1-0.6); Monocytes Percent Auto 8.2 % (2.6-8.5); Neutrophils Absolute Auto 5.6 K/mm3 (1.3-6.7); Neutrophils Percent Auto 65.8 % (45.5-73.1); Platelet Count Result 239 k/mm3 (150-375); Red Blood Count 2.66 M/mm3 (4.6-6.20); Red Cell Distribution Width 13.5 % (11.5-14.5); White Blood Count 8.5 K/mm3 (4.5-10.0)
[2023-09-20 08:33] LABS: Alanine Aminotransferase 24 U/L (6-50); Albumin Level 3.9 g/dL (3.5-5.1); Alkaline Phosphatase 79 U/L (38-126); Anion Gap 4 mmol/L (4-12); Aspartate Amino Transferase 32 U/L (17-59); Bilirubin,Total 0.5 mg/dL (0.2-1.3); Blood Urea Nitrogen 8 mg/dL (9-20); Calcium 9.1 mg/dL (8.4-10.2); Carbon Dioxide 29 mmol/L (22-30); Chloride 103 mmol/L (98-107); Estimated CRCL calculation 78 ml/min; Estimated Glomerular Filt Rate > 60; Glucose 109 mg/dL (65-110); Sodium 136 mmol/L (137-145)
[2023-09-20 08:55] LABS: Anisocytosis 1+; Platelet Estimate Adequate (Adequate); Polychromasia 1+; Schistocytes None Seen
--- NOTE | 2023-09-20 12:50 | WPDGIPROGNO ---
Progress Note: A&P Assessment and Plan (1) Acute on chronic blood loss anemia: Code(s): D62 - Acute posthemorrhagic anemia Status: Acute Assessment and Plan: h/h stable now found multiple ulcers he understand that should not be using nsaid's/excedrin will go home with PPI (already ordered) egd in 3 months to assess healing (2) Peptic ulcer disease: Code(s): K27.9 - Peptic ulcer, site unspecified, unspecified as acute or chronic, without hemorrhage or perforation Status: Acute (3) Arthritis: Code(s): M19.90 - Unspecified osteoarthritis, unspecified site Status: Acute (4) NSAID long-term use: Code(s): Z79.1 - jail (current) use of non-steroidal anti-inflammatories (NSAID) Status: Acute Subjective Date/time seen: 09/20/23 12:50 Interval history: he is doing great, no bleeding, he is eating Review of Systems Review of Systems: All systems reviewed & are unremarkable except as noted in HPI and below Exam Const: General: comfortable and no acute distress HENMT: Face/Nose/Sinus: Normal nares present Eyes: General: appearance normal, both eyes and all related structures Neck: Neck: supple Resp: Auscultation: clear to auscultation bilaterally Cardio: Rate: regular rate Rhythm: regular rhythm GI: Inspection: non-distended GI Palp: Yes Soft to palpation, Yes Tenderness to palpation present (GI) (minimal ttp in epigastric) and No Guarding due to palpation present (GI) Auscultation: normal bowel sounds Skin: General skin exam: no rashes or lesions noted Neuro: Speech: normal speech Extrem: General: normal to inspection Psych: Mental Status: mental status grossly normal Objective Data Vital Signs Vital Signs: Vital Signs - 24 hr 09/19/23 13:44 09/19/23 21:19 09/19/23 20:15 Temperature 97.6 F 97.9 F Pulse Rate 82 78 Respiratory Rate 16 Blood Pressure 100/56 L 150/88 H Pulse Oximetry 97 99 Oxygen Delivery Room Air 09/20/23 05:27 09/20/23 08:15 Temperature 98.3 F Pulse Rate 79 Respiratory Rate Blood Pressure 108/67 Pulse Oximetry 96 Oxygen Delivery Room Air Intake/Output Intake/Output: Intake & Output 0509/18/23 09/19/23 09/20/23 23:59 23:59 23:59 23:59 Intake Total 725 1600 480 Output Total 951 Balance 725 649 480 Meds/Results Medications: Active Medications Generic Name Dose Route Start Last Admin Trade Name Freq PRN Reason Stop Dose Admin Acetaminophen 650 mg 09/19/23 01:10 Acetaminophen 325 Mg Tablet PO Q4H PRN fever or pain rated 1-3 Melatonin 3 mg 09/18/23 22:15 09/19/23 20:15 Melatonin 3 Mg Tablet PO 3 mg HS MIGUEL Administration Pantoprazole Sodium 40 mg 09/18/23 21:00 09/20/23 08:15 Pantoprazole Sodium Iv 40 Mg Vial IV PUSH 40 mg Q12HR MIGUEL Administration Rosuvastatin Calcium 20 mg 09/19/23 00:05 09/19/23 20:15 Rosuvastatin 20 Mg Tablet PO 20 mg HS MIGUEL Administration Sucralfate 1,000 mg 09/18/23 16:30 09/20/23 10:54 Sucralfate Susp 100 Mg/Ml 10 Ml Udc PO 1,000 mg ACHS MIGUEL Administration Tramadol HCl 50 mg 09/19/23 01:11 09/20/23 06:39 Tramadol Hcl (*Crx) 50 Mg Tablet PO 50 mg Q6H PRN Administration Pain Rated 4-10 Radiology Results: ITS Impressions Abdomen/Pelvis CT 09/18/23 11:44 Impression: Suspected cystitis. Correlate with urinalysis. Probable partially groundglass opacity left upper lobe. Pneumonia is a consideration. Consider dedicated chest CT as indicated. Chest CT 09/18/23 13:55 Impression: Vague groundglass opacity left upper lobe, nonspecific. Diagnostic considerations could include focal pneumonitis or possibly chronic postinflammatory change. Additional probable focal peripheral scarring in the anterior left upper lobe. Labs Labs: Laboratory Results - last 24 hr 09/20/23 08:01 WBC 8.5 RBC 2.66 L Hgb 9.5 L Hct 28.3 L MCV 106.4
--- NOTE | 2023-09-20 13:44 | PM.DS ---
DS: Admitting Diagnosis Discharge Date 09/20/2023 Admitting Diagnosis Melena Acute posthemorrhagic anemia Diarrhea Hypokalemia BPH Hypertension DS: Discharge Diagnosis Discharge Diagnosis (1) Melena: Code(s): K92.1 - Melena Status: Acute (2) Acute posthemorrhagic anemia: Code(s): D62 - Acute posthemorrhagic anemia Status: Acute (3) Diarrhea: Code(s): R19.7 - Diarrhea, unspecified Status: Acute (4) Hypokalemia: Code(s): E87.6 - Hypokalemia Status: Acute (5) BPH (benign prostatic hyperplasia): Code(s): N40.0 - Benign prostatic hyperplasia without lower urinary tract symptoms Status: Acute (6) Hypertension: Code(s): I10 - Essential (primary) hypertension Status: Acute DS: Summary Hospital Course Reason for hospitalization: Melena Acute posthemorrhagic anemia Diarrhea Hypokalemia BPH Hypertension Hospital Course: 62 y/o male with past medical history of BPH, colitis, gastric ulcer, HTN, and upper GI bleed (2007, 2021) presents to the hospital with shortness of breath and dark tarry stools. Patient notes that he has been taking Excedrin like its candy for his chronic arthritis pain. CBC with anemia on admission. GI was consulted for concern of GI bleed. EGD was performed and showed multiple ulcers in the upper GI tract. These ulcerations are the likely source of the GI bleed and likely arose due to patients overuse of NSAIDs/Excedrin. Patient started on pantoprazole and carafate. His aspirin was discontinued. His H/H was reassess on am labs and is improving. Patient no longer symptomatic with his anemia and denies dizziness, lightheadedness, shortness of breath, and diarrhea. Discussed with patient the importance of NSAID cessation. He states understanding and will follow up with his PCP to get a better pain regimen ordered. Until then patient can take scheduled Tylenol for pain. He will also follow up with GI in 3 months to have an EGD doen to assess healing. Patient discharged home in a stable condition. He will remain on pantoprazole and carafate at discharge. His aspirin is discontinued. He will follow up with his PCP in 1 week and GI for the EGD in 3 months. Status at Discharge Functional status at discharge: independent ambulation Time Spent with Patient Time attestation: Total time spent providing and/or coordinating discharge services: Time spent: Greater than 30 minutes Exam Narrative: AF HR 79 RR 16 SpO2 97 BP 108/67 General: male in no acute respiratory distress who is nontoxic appearing, lying semi recumbent in bed. HEENT: Normocephalic. Atraumatic. Pupils equal round reactive to light. Extraocular movement intact. No facial asymmetry. Chest: Lungs are clear to auscultation bilaterally. No wheezes or crackles. CV: Heart was regular rate and rhythm. S1/S2. No murmurs, gallops, or rubs. Abd: Abdomen was soft. Nontender. Nondistended. Positive bowel sounds. No organomegaly or masses. Ext: No clubbing, cyanosis, or edema. 2+ DP pulses bilaterally. Neuro: Patient is alert and oriented x4. Speech is clear. Psych: Normal mood and affect. Patient is pleasant and cooperative. Skin: Warm and dry. No rashes noted. DS: Data Data Completed and Pending Completed studies during hospitalization: Chest CT Abdomen/Pelvis CT Pending studies at discharge: Pending at discharge 09/18/23 14:40 Surgical [PTH] Routine Labs on day of discharge: Labs from last 24 hours 09/20/23 08:01 WBC 8.5 RBC 2.66 L Hgb 9.5 L Hct 28.3 L MCV 106.4 H MCH 35.7 H MCHC 33.6 RDW 13.5 Plt Count 239 MPV 8.7 Immature Gran % (Auto) 0.6 H Neut % (Auto) 65.8 Lymph % (Auto) 20.4 [place] % (Auto) 8.2 Eos % (Auto) 4.2 Baso % (Auto) 0.8 Lymph # (Auto) 1.74 [place] # (Auto) 0.7 H Eos # (Auto) 0.4 H Baso # (Auto) 0.1 Abs Immat Gran (auto) 0.05 H Absolute Neuts (auto) 5.6 Absolute Nucleated RBC 0.000 Nucleated RBC % 0.0 P
== END 2023-09-20 13:10 | disposition home or self-care (01) ==
LOC: ANHED 12:24 → ANH3MEDSUR 13:20
PROVIDERS: Internal Medicine Gastroenterology; Student in an Organized Health Care Education/Training Program; Admitting Provider Internal Medicine; Emergency Provider Emergency Medicine; Visit Provider Internal Medicine
PROC: 0DJ08ZZ Inspection of Upper Intestinal Tract, Via Natural or Artificial Opening Endoscopic (ICD-10-PCS; CPT 43235; principal; 2023-09-18 16:00)
DX: K25.9 Gastric ulcer, unspecified as acute or chronic, without hemorrhage or perforation (principal); D62 Acute posthemorrhagic anemia; K29.50 Unspecified chronic gastritis without bleeding; K21.00 Gastro-esophageal reflux disease with esophagitis, without bleeding; K29.80 Duodenitis without bleeding; E87.6 Hypokalemia; R19.7 Diarrhea, unspecified; R06.02 Shortness of breath; N40.0 Benign prostatic hyperplasia without lower urinary tract symptoms; I10 Essential (primary) hypertension; M19.90 Unspecified osteoarthritis, unspecified site; Z87.11 Personal history of peptic ulcer disease; F17.210 Nicotine dependence, cigarettes, uncomplicated; Z79.82 Long term (current) use of aspirin; Z79.1 Long term (current) use of non-steroidal anti-inflammatories (NSAID); Z79.891 Long term (current) use of opiate analgesic
CPT/HCPCS: 43239; 36415; 71250; 74177; 80048; 80053; 81003; 83605; 83690; 83735; 85014; 85018; 85025; 85610; 85730; 87045; 87081; 87427; 87449; 87493; 88305; 96361; 96374; 96375; 99285; A9270; C9113; G0378; G0379; J2270; J2405; J2704; J3480; J7040; J7120; Q9967